=== PATIENT | female | born 1945 | race Caucasian/White ===

== ENCOUNTER → 2018-04-13 | Emergency (ER) | payer OTHER ==
[~2018-04-13] VITALS: Ht 165.1 cm; Wt 100.0 kg
[~2018-04-13] MED LIST: ACETAMINOPHEN/CODEINE 300-30 MG TABLET PO ONE; CEPHALEXIN MONOHYDRATE 500 MG CAPSULE PO ONE; ETAN25DI SQ; FERR-89 PO; HYDR25TA PO; LIDOCAINE 1% 10 ML VIAL INJ ONE; LOSA50TA64 PO; METF-960 PO; POVIDONE-IODINE 10% 15 ML SOLUTION UD TP ONE; PRAV40TA4 PO; SULFAMETHOX/TRIMETH DS 800-160 MG/TABLET PO ONE
[2018-04-13 12:24] LABS: GLUCOSE,POINT OF CARE 111 MG/DL (70-110)
[2018-04-13 17:24] VITALS: BP 124/64
== END | disposition home or self-care (01) ==
LOC: EMS 12:09
DX: N61.1 Abscess of the breast and nipple (principal); I10 Essential (primary) hypertension; E11.9 Type 2 diabetes mellitus without complications; Z79.84 Long term (current) use of oral hypoglycemic drugs
CPT/HCPCS: 10160; 82962; 99284; J3490